=== PATIENT | male | born 1975 | race Caucasian/White ===

== ENCOUNTER 2021-02-26 17:06 | Emergency (ER) | payer OTHER, SELFPAY ==
--- NOTE | ~2021-02-26 | XR_ITS ---
EXAMINATION: XR shoulder LT min 2V DATE: 02/26/2021 18:05 INDICATION: Left shoulder injury. TECHNIQUE: 5 views of left shoulder were obtained. COMPARISON: None. FINDINGS: Bone alignment is normal. No acute fracture. There is an old healed fracture of left clavic le. There is moderate osteoarthritis of acromioclavicular joint and mild osteoarthritis of glenohumer al joint. IMPRESSION: 1. Polyarticular osteoarthritis. Reviewed, dictated and finalized at location A.
--- NOTE | ~2021-02-26 | XR_ITS ---
EXAMINATION: XR cervical spine 4-5V DATE: 02/26/2021 18:05 INDICATION: Neck injury. TECHNIQUE: 5 views of cervical spine were obtained. COMPARISON: Cervical spine radiographs 05/12/2005 FINDINGS: There is 8 degrees levocurvature of cervicothoracic spine. Vertebral body heights and inter vertebral disc heights are normal. The facet joints are unremarkable. No central canal stenosis or pr evertebral soft tissue swelling. There is an old healed fracture of left clavicle. IMPRESSION: 1. No acute fracture. Reviewed, dictated and finalized at location A. IMPRESSION: 1. No acute fracture.
[2021-02-26 17:22] VITALS: BP 142/86; PULSE 78; RESP 16; TEMP 36.6; O2SAT 97
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
== END 2021-02-26 18:21 | disposition home or self-care (01) ==
PROVIDERS: Emergency Provider Nurse Practitioner
DX: M25.512 Pain in left shoulder (principal); S16.1XXA Strain of muscle, fascia and tendon at neck level, initial encounter; W22.8XXA Striking against or struck by other objects, initial encounter; Z86.73 Personal history of transient ischemic attack (TIA), and cerebral infarction without residual deficits; E11.42 Type 2 diabetes mellitus with diabetic polyneuropathy; K21.9 Gastro-esophageal reflux disease without esophagitis; Z79.01 Long term (current) use of anticoagulants
CPT/HCPCS: 72050; 73030; 99214; G0463

== ENCOUNTER 2021-03-03 15:17 | Emergency (ER) | payer OTHER, SELFPAY ==
--- NOTE | 2021-03-03 15:23 | ED.SKABFB ---
HPI - Skin/Abscess/Foreign Bdy General Chief complaint: Skin/Abscess/Foreign Body Stated complaint: Possible Cist under left Arm/Return work statement Time Seen by Provider: 03/03/21 15:24 Source: patient and RN notes reviewed History of Present Illness HPI narrative: Patient is a 45-year-old male who presents the urgent care with a cyst under the left arm. Patient states it has been there for a few weeks and is just now became more inflamed and painful. Patient states that he has been using Pred and warm compress and has gotten some drainage out of the area. Patient states that he typically is able to resolve these at home however this 1 has not resolved. Patient denies of any fever, nausea, vomiting. Patient also states that he needs a release back to work after being seen in our facility on February 26 . Patient states he had a Workmen's Comp. case at that time and never got a return to work form. No other acute complaints. No acute distress noted. Patient aware of the plan of care. Some parts of this dictation were generated by voice recognition software and may contain typographical and/or grammatical inaccuracies. Related Data Allergies Allergy/AdvReac Type Severity Reaction Status Date / Time No Known Allergies Allergy Verified 03/03/21 15:36 Review of Systems Review of Systems: CONSTITUTIONAL: Denies fever, chills, or sweats. EYES: Denies visual changes, redness, or discharge. ENT: Denies rhinorrhea, congestion, sore throat, or otalgia. CARDIOVASCULAR: Denies chest pain, palpitations, or edema. RESPIRATORY: Denies cough or dyspnea. GASTROINTESTINAL: Denies abdominal pain, nausea, vomiting, or diarrhea. GENITOURINARY: Denies dysuria or hematuria. SKIN: Reports of a painful cyst to the left axilla MUSCULOSKELETAL: Denies back pain, joint pain, or myalgia. NEUROLOGIC: Denies headache, numbness, or weakness. All other systems reviewed are negative, except as documented in HPI. PMFSH Comments At the time of my signature, I reviewed and agree with the nursing past medical, surgical, social, and family history. There is no relevant family history pertinent to the patient complaint. Exam Narrative: GENERAL: This is a well-nourished, well-developed patient, in no apparent distress. HEAD: normocephalic, atraumatic. EYES: PERRL. Sclera clear/white. Vision is grossly intact. EARS: External ears normal NOSE: External nose normal with no obvious nasal discharge, nares without redness, no rhinorrhea. THROAT: Mucous membranes moist NECK: Neck supple. CARDIOVASCULAR: Regular rate and rhythm without murmurs, gallops, or rubs. RESPIRATORY: Clear to auscultation. Breath sounds equal bilaterally. No wheezes, rales, or rhonchi. SKIN: Abscess?4 cm area of erythema to the left axilla region with a 1 cm firm center with scant drainage and moderate tenderness NEURO: awake, alert, and oriented to person, place and time. There were no obvious focal neurologic abnormalities. EXTREMITIES: No clubbing, cyanosis, or edema. Course Vital Signs Vital signs: Vital Signs Temperature 98.1 F 03/03/21 15:25 Pulse Rate 97 03/03/21 15:25 Respiratory Rate 18 03/03/21 15:25 Blood Pressure 154/86 H 03/03/21 15:25 Pulse Oximetry 97 03/03/21 15:25 Temperature 98.1 F 03/03/21 15:25 Pulse Rate 97 03/03/21 15:25 Respiratory Rate 18 03/03/21 15:25 Blood Pressure 154/86 H 03/03/21 15:25 Pulse Oximetry 97 03/03/21 15:25 Reviewed-patient is informed that they may have pre-hypertension or hypertension based on a blood pressure reading in the department. I recommend the patient call the primary care provider listed on their discharge instructions or a physician of their choice this week to arrange follow-up for further evaluation of possible pre-hypertension or hypertension. MDM - Skin/Abscess/Foreign Bdy MDM Narrative Medical decision making narrative: Advised patient to continue warm compress to the area for comfort and reso
[2021-03-03 15:25] VITALS: BP 154/86; PULSE 97; RESP 18; TEMP 36.7; O2SAT 97
== END 2021-03-03 15:50 | disposition home or self-care (01) ==
PROVIDERS: Emergency Provider Nurse Practitioner Family
DX: L02.412 Cutaneous abscess of left axilla (principal)
CPT/HCPCS: 99213; G0463